=== PATIENT | female | born 1960 | race Caucasian/White ===

== ENCOUNTER 2020-08-07 12:01 | Emergency (ER) | payer BC, OTHER ==
[2020-08-07] MEDS ORDERED: cloNIDine 0.1 MG Tab PO ONE (13:00)
[2020-08-07] MEDS ORDERED: hydrALAZINE 20 MG/ML SDV IVPUSH ONE ×2 (13:06→14:25)
--- NOTE | 2020-08-07 14:37 | EDM.PDOC ---
ED HPI GENERAL MEDICAL PROBLEM - General Chief Complaint: Cardiovascular Problem Stated Complaint: HIGH BP Time Seen by Provider: 08/07/20 12:21 Source of Information: Reports: Patient, RN Notes Reviewed History Limitations: Reports: No Limitations - History of Present Illness INITIAL COMMENTS - FREE TEXT/NARRATIVE: Patient is a 60-year-old female presenting to the emergency department with complaints of high blood pressure. She states she has been on numerous different blood pressure medications in the past and has had adverse effects with most of them. She is currently taking amlodipine 10 mg daily[address] She saw Dr. Smalls,nephrology, and had been advised to take 0.2 mg of clonidine daily. She was started on a 0.2 mg clonidine patch, however she states that she thought t his was making her blood pressure go high, therefore she took it off on Wednesday. Since that time she is only been taking 0.1 mg of clonidine. Blood pressures at home were in the low 200s systolically. She states that her blood pressures normally run in the 170s or 180s systolically. She reports that this morning around 10 AM she took her amlodipine 10 mg and clonidine 0.1 mg. She denies any chest pain or shortness of breath. States she has had some intermittent headaches but denies any vision changes. - Related Data Allergies Allergy/AdvReac Type Severity Reaction Status Date / Time budesonide [From Symbicort] Allergy Severe Cannot Verified 08/07/20 12:31 Remember erythromycin base Allergy Severe Cannot Verified 08/07/20 12:31 [From Staticin] Remember ethyl alcohol [From Staticin] Allergy Severe Cannot Verified 08/07/20 12:31 Remember formoterol [From Symbicort] Allergy Severe Cannot Verified 08/07/20 12:31 Remember hydrochlorothiazide Allergy Severe Cannot Verified 08/07/20 12:31 Remember lisinopril Allergy Severe Cannot Verified 08/07/20 12:31 Remember losartan Allergy Severe Cannot Verified 08/07/20 12:31 Remember metoprolol Allergy Severe Cannot Verified 08/07/20 12:31 Remember olmesartan [From Benicar] Allergy Severe Cannot Verified 08/07/20 12:31 Remember Home Meds: Home Meds amLODIPine [Norvasc] 10 mg PO DAILY 07/28/16 [History] Empagliflozin [Jardiance] 10 mg PO DAILY 08/07/20 [History] cloNIDine [Clonidine] 0.2 each TOP WEEKLY 08/07/20 [History] Past Medical History Cardiovascular History: Reports: Heart Murmur, High Cholesterol, Hypertension Respiratory History: Reports: Asthma, Sleep Apnea Other Respiratory History: CPAP at night Musculoskeletal History: Reports: Gout Endocrine/Metabolic History: Reports: Diabetes, Type II Oncologic (Cancer) History: Reports: Other (See Below) 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 - Past Surgical History Female Surgical History: Reports: Other (See Below) Other Female Surgeries/Procedures: renal artery stent Musculoskeletal Surgical History: Reports: Knee Replacement Social & Family History - Tobacco Use Tobacco Use Status *Q: Current Every Day Tobacco User Years of Tobacco use: 40 Packs/Tins Daily: 1 - Caffeine Use Caffeine Use: Reports: Soda - Recreational Drug Use Recreational Drug Use: No ED ROS GENERAL - Review of Systems Review Of Systems: See Below Constitutional: Reports: No Symptoms. Denies: Fever, Chills, Weakness HEENT: Reports: No Symptoms. Denies: Vision Change Respiratory: Reports: No Symptoms. Denies: Shortness of Breath, Cough Cardiovascular: Reports: No Symptoms. Denies: Chest Pain, Lightheadedness Endocrine: Reports: No Symptoms GI/Abdominal: Reports: No Symptoms : Reports: No Symptoms Musculoskeletal: Reports: No Symptoms Skin: Reports: No Symptoms Neurological: Reports: Headache (occaional). Denies: Dizziness ED EXAM, GENERAL - Physical Exam Exam: See Below General Appearance: Alert, WD/WN, No Apparent Distress Respiratory/Chest: No Respiratory Distress, Lungs Clear, Normal Breath Sounds, No Accessory Muscle Use, Chest Non-Tender Cardiovascular: Normal Peripheral Pulses, Regular Rate, Rhythm, No Edema, No Gallop, No JVD, No Murmur, No Rub GI/Abdominal: Normal Bowel Sounds, Soft, Non-Tender, No Organomegaly, No Distention, No Abnormal Bruit, No Mass Extremities: Normal Inspection, Normal Range of Motion, Non-Tender, Normal Capillary Refill, No Pedal Edema Neurological: Alert, Oriented, CN II-XII Intact, Normal Cognition, Normal Gait, Normal Reflexes, No Motor/Sensory Deficits Psychiatric: Normal Affect, Normal Mood #1 Interpretation EKG Date: 08/07/20 Time: 13:11 Rhythm: NSR Rate (Beats/Min): 85 [place]: Normal P-Wave: Present QRS: Normal ST-T: Normal QT: Normal EKG Interpretation Comments: Sinus rhythm at 85 Occasional PACs Q waves V1 V2-old anterior septal PA Mild ST depression 2, 3,, V2 through V6, and aVF-consider inferior wall ischemia Left atrial hypertrophy EKG interpreted by Dr. Jesica WHELAN Course - Vital Signs Last Recorded V/S: Last Vital Signs Temp 97.7 F 08/07/20 12:20 Pulse 92 08/07/20 15:10 Resp 20 08/07/20 15:10 BP 181/91 H 08/07/20 15:10 Pulse Ox 98 08/07/20 15:10 - Orders/Labs/Meds Orders: Active Orders 24 hr Category Date Time Status Chest 2V [CR] Stat Exams 08/07/20 12:33 Taken Labs: Laboratory Tests 08/07/20 08/07/20 08/07/20 Range/Units 12:55 12:55 12:55 WBC 11.58 H (3.98-10.04) K/mm3 RBC 6.21 H (3.98-5.22) M/mm3 Hgb 17.0 H D (11.2-15.7) gm/dl Hct 49.6 H (34.1-44.9) % MCV 79.9 D (79.4-94.8) fl MCH 27.4 (25.6-32.2) pg MCHC 34.3 (32.2-35.5) g/dl RDW Std Deviation 41.5 (36.4-46.3) fL Plt Count 261 D (182-369) K/mm3 MPV 9.3 L (9.4-12.3) fl Neut % (Auto) 78.7 H (34.0-71.1) % Lymph % (Auto) 13.0 L (19.3-51.7) % [place] % (Auto) 5.6 (4.7-12.5) % Eos % (Auto) 1.6 (0.7-5.8) Baso % (Auto) 0.3 (0.1-1.2) % Neut # (Auto) 9.11 H (1.56-6.13) K/mm3 Lymph # (Auto) 1.51 (1.18-3.74) K/mm3 [place] # (Auto) 0.65 H (0.24-0.36) K/mm3 Eos # (Auto) 0.18 (0.04-0.36) K/mm3 Baso # (Auto) 0.04 (0.01-0.08) K/mm3 Manual Slide Review Normal smear Sodium 134 L (136-145) mEq/L Potassium 3.1 L (3.5-5.1) mEq/L Chloride 95 L (98-107) mEq/L Carbon Dioxide 25 (21-32) mEq/L Anion Gap 17.1 H (5-15) BUN 10 (7-18) mg/dL Creatinine 1.6 H (0.55-1.02) mg/dL Est Cr Clr Drug Dosing 31.88 mL/min Estimated GFR (MDRD) 33 (>60) mL/min BUN/Creatinine Ratio 6.3 L (14-18) Glucose 207 H (80-115) mg/dL Calcium 10.0 (8.5-10.1) mg/dL Total Bilirubin 0.4 (0.2-1.0) mg/dL AST 26 (15-37) U/L ALT 59 (14-59) U/L Alkaline Phosphatase 361 H (46-116) U/L Troponin I < 0.017 (0.00-0.056) ng/mL NT-Pro-B Natriuret Pep 686 H (0-125) pg/mL Total Protein 8.0 (6.4-8.2) g/dl Albumin 3.3 L (3.4-5.0) g/dl Globulin 4.7 gm/dL Albumin/Globulin Ratio 0.7 L (1-2) Meds: Medications Discontinued Medications Generic Name Dose Route Start Last Admin Trade Name Freq PRN Reason Stop Dose Admin Clonidine HCl 0.1 mg 08/07/20 13:00 08/07/20 13:21 Catapres PO 08/07/20 13:01 0.1 mg ONETIME ONE Administration Hydralazine HCl 5 mg 08/07/20 13:06 08/07/20 13:22 Apresoline IVPUSH 08/07/20 13:07 5 mg ONETIME ONE Administration Hydralazine HCl 5 mg 08/07/20 14:25 08/07/20 14:30 Apresoline IVPUSH 08/07/20 14:26 5 mg ONETIME ONE Administration Potassium Chloride 40 meq 08/07/20 15:07 08/07/20 15:16 Klor-Con M20 PO 08/07/20 15:08 40 meq ONETIME ONE Administration - Re-Assessments/Exams Free Text/Narrative Re-Assessment/Exam: Patient is a 60-year-old female presenting to the emergency department with regards to elevated blood pressure. She checked her blood pressure at home and it was in the low 200s over 100s. She is prescribed to take amlodipine 10 mg daily as well as clonidine 0.2 mg and a transdermal patch. She states that her blood pressures have been gradually increasing over the last week, therefore she thought her clonidine was causing the problem. She took her clonidine patch off on Wednesday. This morning she only took 0.1 mg of clonidine in addition to her amlodipine. In review of her records from Gladys Amanda at [facility], patient has been on a number of blood pressure medications most of which she states she has some form of adverse reaction from. Blood pressure the time of triage was initially 221/110, however had soon come down to 204/94. I have ordered blood work including CBC, CMP, CRP, troponin. Also do EKG and a chest x-ray. We will give her clonidine 0.1 mg p.o. as well as hydralazine 5 mg IV initially. 08/07/20 1430 Patient's blood pressure did come down to 185/85. We will give her a second dose of hydralazine 5 mg IV. 08/07/20 1500 Blood pressure came down to 177/88. Her blood work was significant for WBC minimally elevated 11.58, hemoglobin 17, sodium 134, potassium 3.1, anion gap 17.1, creatinine 1.6, alkaline phosphatase 361, proBNP 686. We will give her 40 mEq of oral potassium while she is here. Her troponin was negative. I did call and speak with her primary care provider, Leslie Amanda NP at [facility]. Discussed my plan to have her resume clonidine 0.2 mg and continue amlodipine 10 mg. She should log her blood pressures daily and have her follow-up with Leslie next week. Leslie was in agreement with this plan. She is also going to contact her wiring technician, Dr. Michelle, to check if the addition of hydralazine if her blood pressures remain elevated would be appropriate for her. Discussed this plan with the patient and she is in agreement. Discussed return precautions. I did emphasize that she should not stop taking her clonidine as doing so can cause rebound hypertension. Patient verbalized understanding of this. Discharge instructions as documented. Departure - Departure Time of Disposition: 15:03 Disposition: Home, Self-Care 01 Condition: Good Clinical Impression: Hypertensive heart disease Qualifiers: Heart failure presence: unspecified whether heart failure present Qualified Code(s): I11.9 - Hypertensive heart disease without heart failure Instructions: Hypertension, Adult, [id number] Referrals: Marta Amanda PA-C [Primary Care Provider] - Ember Smalls MD [Consulting Physician] - Forms: ED Department Discharge Additional Instructions: You were seen in the emergency department today for elevated blood pressure. While in the ER initially, your blood pressures were in the low 200s over 100s. Work-up in the ER included blood work, an ECG of your heart, and a chest x-ray. Your potassium was slightly low, therefore you received oral replacement of this. While in the ER, you received clonidine 0.1 mg by mouth as well as a total of hydralazine 10 mg 3 or IV. This did bring her blood pressure down to the 170s over 80s. As we discussed, we do not want to adjust your blood pressure medications today as you have had many adverse effects associate with blood pressure medications. We did consult with your primary care provider, Leslie Amanda. The plan at this point is to have you continue your amlodipine 10 mg and consistently take clonidine 0.2 mg. I would recommend that you apply the 0.2 mg clonidine patch as opposed to the oral medications. Do not stop taking clonidine abruptly as this can cause a severe rebound hypertension which can lead to stroke. Check your blood pressures intermittently each day and keep a log of these readings. Follow-up with Leslie Amanda early next week for reevaluation. If you find that your blood pressures are consistently elevated over 200 systolically, return to the emergency department for reevaluation. Sepsis Event Note (ED) - Evaluation Sepsis Screening Result: No Definite Risk - Focused Exam Vital Signs: Vital Signs Temp Pulse Resp BP BP Pulse Ox 08/07/20 15:10 92 20 181/91 H 98 08/07/20 14:51 93 16 192/94 H 95 08/07/20 13:21 185/85 H 08/07/20 12:20 97.7 F 101 H 20 221/110 H 94 L - My Orders Last 24 Hours: My Active Orders 08/07/20 12:33 Chest 2V [CR] Stat - Assessment/Plan Last 24 Hours: My Active Orders 08/07/20 12:33 Chest 2V [CR] Stat
[2020-08-07] MEDS ORDERED: Potassium Chloride 20 MEQ Tab.ER PO ONE (15:07)
[2020-08-07 15:25] VITALS: BP 181/91; PULSE 92
--- NOTE | 2020-08-08 16:30 | CR ---
PROCEDURE INFORMATION: Exam: XR Chest, 2 Views Exam date and time: 08/07/2020 12:43 PM Age: 60 years old Clinical indication: Other: Hypertension TECHNIQUE: Imaging protocol: XR of the chest Views: 2 views. COMPARISON: CR Chest 1V Frontal 04/04/2019 8:17 PM FINDINGS: Lungs: Unremarkable. No consolidation. Pleural space: Unremarkable. No pleural effusion. No pneumothorax. Heart/Mediastinum: Unremarkable. No cardiomegaly. Bones/joints: Unremarkable. IMPRESSION: No acute findings. Thank you for allowing us to participate in the care of your patient. Dictated and Authenticated by: Aubrey Crouch DO 08/07/2020 2:13 PM Central Time ([place] & [place]) JAYDE
== END 2020-08-07 15:15 | disposition home or self-care (01) ==
LOC: JD.ED 12:01
DX: I11.9 Hypertensive heart disease without heart failure (principal); J45.909 Unspecified asthma, uncomplicated; E11.9 Type 2 diabetes mellitus without complications; F17.210 Nicotine dependence, cigarettes, uncomplicated; Z88.1 Allergy status to other antibiotic agents; Z88.8 Allergy status to other drugs, medicaments and biological substances; Z91.048 Other nonmedicinal substance allergy status
CPT/HCPCS: 36415; 71046; 80053; 83880; 84484; 85025; 93005; 96374; 96376; 99284; A9270; J0360

== ENCOUNTER 2022-04-01 09:52 | Emergency (ER) | payer BC ==
[2022-04-01 10:31] VITALS: BP 173/78; PULSE 84
[2022-04-01] MEDS ORDERED: Sodium Chloride 0.9% 10 ML Syringe FLUSH PRN (10:44)
[2022-04-01] MEDS ORDERED: HYDROmorphone 0.5 MG/0.5 ML Syringe IVPUSH ONE (10:46)
[2022-04-01] MEDS ORDERED: Ondansetron 4 MG/2 ML SDV IVPUSH ONE (10:46)
[2022-04-01 12:10] LABS: ESTIMATED GFR 12 mL/min (>60)
== END 2022-04-01 15:05 | disposition home or self-care (01) ==
LOC: JD.ED 09:52
DX: M35.3 Polymyalgia rheumatica (principal); I12.9 Hypertensive chronic kidney disease with stage 1 through stage 4 chronic kidney disease, or unspecified chronic kidney disease; N18.9 Chronic kidney disease, unspecified; E78.00 Pure hypercholesterolemia, unspecified; E11.9 Type 2 diabetes mellitus without complications; Z88.1 Allergy status to other antibiotic agents; Z88.8 Allergy status to other drugs, medicaments and biological substances; Z79.82 Long term (current) use of aspirin; Z79.899 Other long term (current) drug therapy
CPT/HCPCS: 36415; 71250; 80053; 83605; 83735; 84484; 85025; 85610; 85652; 85730; 86140; 87040; 93005; 96374; 96375; 99285; J1170; J2405; J3490; 93010; 99284

== ENCOUNTER 2024-06-25 20:17 | Emergency (ER) | payer BC ==
[2024-06-25 20:31] VITALS: PULSE 107
[2024-06-25 21:08] LABS: HEMATOCRIT 36.3 % (37.0-47.0); HEMOGLOBIN 11.4 gm/dl (12.0-16.0); MEAN CORPUSCULAR HEMOGLOBIN 25.1 pg (28.0-32.0); MEAN CORPUSCULAR HGB CONC 31.4 g/dl (32.0-36.0); MEAN PLATELET VOLUME 9.5 fl (9.4-12.3); PLATELET COUNT,PLT 338 K/mm3 (150-400); RED BLOOD CELL COUNT 4.54 M/mm3 (4.10-5.30); WHITE BLOOD CELL COUNT,WBC 16.79 K/mm3 (3.9-11.3)
[2024-06-25] MEDS: Sodium Chloride 0.9% 1,000 ML IV ONE (21:14)
[2024-06-25] MEDS: Sodium Chloride 0.9% 10 ML Syringe FLUSH PRN (21:16)
[2024-06-25 21:22] LABS: APPEARANCE,URINE TURBID (Clear); BILIRUBIN,URINE NEGATIVE (Negative); COLOR,URINE YELLOW (Yellow); GLUCOSE,URINE NEGATIVE (Negative); KETONES,URINE NEGATIVE (Negative); LEUKOCYTE ESTERASE,URINE 3+ (Negative); NITRITE,URINE NEGATIVE (Negative); OCCULT BLOOD,URINE 2+ (Negative); PROTEIN,URINE 3+ (Negative); UROBILINOGEN,URINE 0.2 (0.2-1.0)
[2024-06-25 21:27] LABS: INR 1.05; PROTHROMBIN TIME 11.1 SECONDS (9.7-12.0)
[2024-06-25 21:30] LABS: A/G RATIO 0.7 (1-2); ALANINE AMINOTRANSFERASE,ALT 16 U/L (14-59); ALBUMIN 3.1 g/dl (3.4-5.0); ALKALINE PHOSPHATASE 217 U/L (46-116); ANION GAP 16.8 (5-15); ASPARTATE AMNIOTRANSFERASE,AST 8 U/L (15-37); BILIRUBIN TOTAL 0.3 mg/dL (0.2-1.0); BLOOD UREA NITROGEN,BUN 21 mg/dL (7-18); BUN/CREATININE RATIO 8.4 (14-18); C-REACTIVE PROTEIN 15.17 mg/dL (<0.30); CALCIUM 10.5 mg/dL (8.5-10.1); CARBON DIOXIDE,CO2 22 mEq/L (21-32); CHLORIDE,CL 102 mEq/L (98-107); CREATININE 2.5 mg/dL (0.55-1.02); ESTIMATED GFR 21 mL/min (>60); GLUCOSE RANDOM 158 mg/dL (70-99); POTASSIUM,K 3.8 mEq/L (3.5-5.1); PROTEIN TOTAL,TP 7.7 g/dl (6.4-8.2); SODIUM,NA 137 mEq/L (136-145)
[2024-06-25 21:31] LABS: BAND PERCENT MAN 1 % (0-10); BASOPHILS PERCENT MAN 1 (0.1-1.2); EOSINOPHILS PERCENT MAN 2 % (0.7-5.8); HYPOCHROMASIA 1+ SLIGHT; LYMPHOCYTES % ATYPICAL MANUAL 0 %; LYMPHOCYTES PERCENT MAN 10 % (20-40); MICROCYTOSIS 1+ SLIGHT; MONOCYTES PERCENT MAN 7 % (2-10); PLATELET COUNT ESTIMATE ADEQUATE
[2024-06-25 21:32] LABS: LACTIC ACID 0.9 mmol/L (0.4-2.0)
[2024-06-25 21:42] LABS: BACTERIA,URINE MODERATE /hpf (FEW); MUCUS,URINE NOT SEEN /hpf (FEW); RBC,URINE 20-30 /hpf (0-5); WBC,URINE TOO NUMEROUS TO CNT /hpf (0-5)
[2024-06-25] MEDS: cefTRIAXone 2 GM in Sodium Chloride 0.9% 100 ML IV ONE (22:03)
[2024-06-25 22:31] VITALS: BP 178/58
[2024-06-25] MEDS: HYDROmorphone 0.5 MG/0.5 ML Syringe IVPUSH ONE (23:08)
== END 2024-06-26 00:08 | disposition home or self-care (01) ==
LOC: JD.ED 20:17
DX: D25.9 Leiomyoma of uterus, unspecified (principal); N39.0 Urinary tract infection, site not specified; I10 Essential (primary) hypertension; E78.00 Pure hypercholesterolemia, unspecified; J45.909 Unspecified asthma, uncomplicated; E11.9 Type 2 diabetes mellitus without complications; Z79.82 Long term (current) use of aspirin; Z79.84 Long term (current) use of oral hypoglycemic drugs; Z79.899 Other long term (current) drug therapy; Z88.1 Allergy status to other antibiotic agents; Z88.8 Allergy status to other drugs, medicaments and biological substances
CPT/HCPCS: 36415; 74176; 76857; 80053; 81001; 83605; 85007; 85027; 85610; 86140; 87040; 87086; 96361; 96365; 96375; 99284; J0696; J1170; J3490; J7030